=== PATIENT | male | born 1980 | race Caucasian/White ===

== ENCOUNTER 2016-09-02 19:24 | Emergency (ER) | payer OTHER ==
[~2016-09-02] VITALS: Ht 188 cm; Wt 88.6 kg
[2016-09-02 19:28] VITALS: BP 144/90; PULSE 88; TEMP 98.6
== END 2016-09-02 20:59 | disposition home or self-care (01) ==
LOC: COL.ER 19:24
DX: Z04.8 Encounter for examination and observation for other specified reasons (principal)

== ENCOUNTER → 2018-06-06 | Outpatient (CLI) | payer OTHER | LOC: COL.RAD 09:42 | DX: R93.7 Abnormal findings on diagnostic imaging of other parts of musculoskeletal system (principal) ==

== ENCOUNTER → 2018-09-05 | Outpatient (CLI) | payer OTHER | LOC: COL.RAD 08:59 | DX: M19.011 Primary osteoarthritis, right shoulder (principal) | CPT/HCPCS: A9585; Q9967 ==

== ENCOUNTER → 2019-05-13 | Outpatient (CLI) | payer OTHER | LOC: COL.RAD 12:48 | DX: M25.511 Pain in right shoulder (principal); M75.41 Impingement syndrome of right shoulder | CPT/HCPCS: A9585; Q9967 ==

== ENCOUNTER 2022-06-23 09:58 | Emergency (ER) | payer OTHER ==
[~2022-06-23] VITALS: Ht 188 cm; Wt 90.9 kg
[2022-06-23 10:15] VITALS: TEMP 98.3
[2022-06-23 11:44] LABS: BASO % 0.7 % (0.0-2.0); EOS # 0.1 K/mm3 (0.0-0.7); EOS % 2.8 % (0.0-4.0); GRAN # 1.9 K/mm3 (1.4-6.5); GRAN % 45.6 % (42.2-75.2); HEMATOCRIT 44.7 % (42.0-52.0); HEMOGLOBIN 15.1 g/dl (13.5-18.0); LYMPH # 1.7 K/mm3 (1.2-3.4); LYMPH % 40.3 % (20.0-51.0); MEAN CELL VOLUME 86 fl (80.0-100.0); MEAN CORPUSCULAR HEMOGLOBIN 29 pg (27-31); MEAN CORPUSCULAR HGB CONC 34 g/dl (33.0-37.0); MEAN PLATELET VOLUME 10.1 fl (7.4-10.4); MONO # 0.4 K/mm3 (0.1-0.6); MONO % 10.4 % (1.7-9.3); PLATELET COUNT 224 K/mm3 (130-400); RED BLOOD COUNT 5.18 M/mm3 (4.20-5.60); REDCELL DISTRIBUTION WIDTH-CV 12.4 % (11.5-14.5)
[2022-06-23 11:53] LABS: ANION GAP 10 mmol/L (7-16); BLOOD UREA NITROGEN 18 mg/dL (9-21); CALCIUM 9.8 mg/dL (8.4-10.2); CARBON DIOXIDE 26 mmol/L (22-29); CHLORIDE 105 mmol/L (98-107); GLUCOSE 89 mg/dL (70-99); POTASSIUM 4.4 mmol/L (3.5-4.5); SODIUM 141 mmol/L (136-145)
[2022-06-23 12:03] LABS: TROPONIN-I < 0.010 ng/mL (0.00-0.033)
[2022-06-23] MEDS ORDERED: NAPROSYN500 MG PO (14:19)
[2022-06-23] MEDS ORDERED: ROXICODONE 55 MG/TAB PO (14:19)
[2022-06-23] MEDS ORDERED: ROBAXIN 50500 MG/TAB PO (14:19)
[2022-06-23 14:27] VITALS: BP 113/70; PULSE 65
== END 2022-06-23 16:05 | disposition home or self-care (01) ==
LOC: COL.ER 09:58
PROVIDERS: Emergency Medicine
DX: R07.89 Other chest pain (principal); M54.6 Pain in thoracic spine; Z86.16 Personal history of COVID-19
CPT/HCPCS: J1885